=== PATIENT | female | born 1970 | race Caucasian/White ===

== ENCOUNTER → 2019-07-07 08:23 | Outpatient (BNVA) | payer BC, SELFPAY | PROVIDERS: Family Provider Nurse Practitioner; PCP Nurse Practitioner; Visit Provider Nurse Practitioner | DX: E78.5 Hyperlipidemia, unspecified (principal); I10 Essential (primary) hypertension | CPT/HCPCS: 80053; 80061; 85025 ==

== ENCOUNTER 2019-07-29 10:33 | Outpatient (CLI) | payer BC, SELFPAY ==
--- NOTE | 2019-07-29 11:00 | MM_ITS ---
WS: [id number] DIAGNOSTIC BILATERAL DIGITAL MAMMOGRAM WITH CAD RIGHT breast ultrasound, limited HISTORY: hx mass breast COMPARISON: 12/07/2018, 09/16/2018, 08/04/2018 and 07/04/2018 TECHNIQUE: Bilateral craniocaudad, mediolateral oblique, and mediolateral views are submitted. Comput er aided detection utilized. Breast composition: There are scattered areas of fibroglandular density. Partially obscured nodule in the upper outer quadrant of the RIGHT breast measures 10 mm. No change since 07/13/2018. There is a s urgical clip lateral and superior to the nodule. There are no suspicious calcifications. LEFT breast is negative. RIGHT breast ultrasound: Ultrasound is directed to the upper outer quadrant of the RIGHT breast and more specifically at 10:00 . At 10:00 there is an ovoid cyst with through transmission posteriorly measuring 6 x 4 x 7 mm. Previ ously described hypoechoic irregular tract seen on 08/13/2018 is no longer apparent. 1. No change in size of the partially obscured 10 mm nodule posterior RIGHT breast at 10:00. 2. Simple cyst at 10:00 with a maximum diameter 7 mm. 3. There are no suspicious findings by ultrasound in the RIGHT breast. MM/[place] [id number] Impression: BI-RADS: 2-Benign FOLLOW UP: 1 Year Follow-up
--- NOTE | 2019-07-29 11:20 | US_ITS ---
WS: [id number] DIAGNOSTIC BILATERAL DIGITAL MAMMOGRAM WITH CAD RIGHT breast ultrasound, limited HISTORY: hx mass breast COMPARISON: 12/07/2018, 09/16/2018, 08/04/2018 and 07/04/2018 TECHNIQUE: Bilateral craniocaudad, mediolateral oblique, and mediolateral views are submitted. Comput er aided detection utilized. Breast composition: There are scattered areas of fibroglandular density. Partially obscured nodule in the upper outer quadrant of the RIGHT breast measures 10 mm. No change since 07/13/2018. There is a s urgical clip lateral and superior to the nodule. There are no suspicious calcifications. LEFT breast is negative. RIGHT breast ultrasound: Ultrasound is directed to the upper outer quadrant of the RIGHT breast and more specifically at 10:00 . At 10:00 there is an ovoid cyst with through transmission posteriorly measuring 6 x 4 x 7 mm. Previ ously described hypoechoic irregular tract seen on 08/13/2018 is no longer apparent. 1. No change in size of the partially obscured 10 mm nodule posterior RIGHT breast at 10:00. 2. Simple cyst at 10:00 with a maximum diameter 7 mm. 3. There are no suspicious findings by ultrasound in the RIGHT breast. US/US breast RT limited* [id number] Impression: BI-RADS: 2-Benign FOLLOW UP: 1 Year Follow-up
== END 2019-07-29 10:34 | disposition home or self-care (01) ==
PROVIDERS: PCP Nurse Practitioner; Visit Provider Nurse Practitioner
DX: Z86.03 Personal history of neoplasm of uncertain behavior (principal)
CPT/HCPCS: 76642; 77066

== ENCOUNTER → 2019-08-09 09:12 | Outpatient (BNVA) | payer BC, SELFPAY | PROVIDERS: PCP Nurse Practitioner; Visit Provider Internal Medicine | DX: M06.9 Rheumatoid arthritis, unspecified (principal); Z79.899 Other long term (current) drug therapy | CPT/HCPCS: 99213 ==

== ENCOUNTER → 2019-11-17 13:51 | Outpatient (BNVA) | payer BC, SELFPAY | PROVIDERS: PCP Nurse Practitioner; Visit Provider Internal Medicine | DX: M06.9 Rheumatoid arthritis, unspecified (principal) | CPT/HCPCS: 36415; 80053; 85025; 85651; 86140; 99213 ==

== ENCOUNTER → 2020-03-14 14:56 | Outpatient (BNVA) | payer BC, SELFPAY | PROVIDERS: PCP Nurse Practitioner; Visit Provider Internal Medicine | DX: M06.9 Rheumatoid arthritis, unspecified (principal); Z79.899 Other long term (current) drug therapy; Z11.1 Encounter for screening for respiratory tuberculosis; Z11.59 Encounter for screening for other viral diseases | CPT/HCPCS: 36415; 80053; 85025; 85651; 86140; 86480; 86704; 86803; 87340; 99213; 99214 ==

== ENCOUNTER 2020-07-30 09:39 | Outpatient (CLI) | payer BC, SELFPAY ==
--- NOTE | 2020-07-30 10:00 | MM_ITS ---
WS: [id number] BILATERAL DIGITAL SCREENING MAMMOGRAPHY WITH CAD CLINICAL INFORMATION: Z12.39 - Encounter for other screening for malignant neoplasm of breast HISTORY: Screening mammogram. No current complaints. COMPARISON: July 29, 2019 TECHNIQUE: Bilateral CC and MLO views. FINDINGS: Scattered fibroglandular densities bilaterally. Stable partially obscured 10 mm nodule posterior righ t breast. This was previously evaluated. Biopsy clip upper outer right breast. No suspicious focal ma ss, asymmetry, calcifications, or architectural distortion. No evidence of malignancy. MM/[place] [id number] IMPRESSION: BI-RADS: 2-Benign FOLLOW UP: 1 Year Follow-up Recommend return to annual screening mammography.
== END 2020-07-30 09:40 | disposition home or self-care (01) ==
LOC: RADSHAW 09:41
PROVIDERS: PCP Nurse Practitioner; Visit Provider Nurse Practitioner
DX: Z12.31 Encounter for screening mammogram for malignant neoplasm of breast (principal)
CPT/HCPCS: 77067

== ENCOUNTER → 2020-08-22 09:37 | Outpatient (BNVA) | payer BC, SELFPAY | PROVIDERS: PCP Nurse Practitioner; Visit Provider Internal Medicine Rheumatology | DX: Z79.899 Other long term (current) drug therapy (principal); M06.9 Rheumatoid arthritis, unspecified; E55.9 Vitamin D deficiency, unspecified; I10 Essential (primary) hypertension | CPT/HCPCS: 36415; 80053; 80061; 82306; 84443; 85025; 85651; 86140 ==

== ENCOUNTER → 2020-08-28 09:33 | Outpatient (BNVA) | payer BC, SELFPAY | PROVIDERS: PCP Nurse Practitioner; Visit Provider Internal Medicine | DX: M06.9 Rheumatoid arthritis, unspecified (principal); Z79.899 Other long term (current) drug therapy | CPT/HCPCS: 99213; 99214 ==

== ENCOUNTER → 2021-01-02 08:48 | Outpatient (BNVA) | payer BC, SELFPAY | PROVIDERS: PCP Nurse Practitioner; Visit Provider Internal Medicine | DX: Z79.899 Other long term (current) drug therapy (principal); M06.9 Rheumatoid arthritis, unspecified | CPT/HCPCS: 36415; 80053; 85025; 85651; 86140 ==

== ENCOUNTER → 2021-01-10 13:11 | Outpatient (BNVA) | payer BC, SELFPAY | PROVIDERS: PCP Nurse Practitioner; Visit Provider Internal Medicine | DX: M06.9 Rheumatoid arthritis, unspecified (principal); Z79.899 Other long term (current) drug therapy; L98.9 Disorder of the skin and subcutaneous tissue, unspecified | CPT/HCPCS: 88305; 99214 ==

== ENCOUNTER 2021-06-14 09:30 | Outpatient (CLI) | payer BC, SELFPAY ==
[2021-06-14 10:41] LABS: Basophils # 0.1 10^3/uL (0.0-0.1); Basophils % 0.7 %; Eosinophils # 0.1 10^3/uL (0.0-0.8); Eosinophils % 1.7 %; Hematocrit 42.2 % (37.0-47.0); Hemoglobin 13.2 g/dL (11.5-15.3); Lymphocytes # 2.2 10^3/uL (0.8-4.8); Lymphocytes % 30.1 %; Mean Corpuscular HGB Conc 31.3 g/dL (30.0-36.0); Mean Corpuscular Hemoglobin 27.7 pg (28.0-34.0); Mean Corpuscular Volume 88.5 fl (81-99); Mean Platelet Volume 10.3 fL (7.4-10.4); Monocytes # 0.5 10^3/uL (0.2-0.9); Monocytes % 6.4 %; Neutrophils # 4.53 10^3/uL (1.8-7.7); Neutrophils % 60.8 %; Nucleated Red Blood Cells % 0 %; Platelet Count 348 10^3/cmm (130-400); Red Blood Count 4.77 10^6/uL (4.1-5.3); Red Cell Distribution Width 13.9 % (12.1-15.1); White Blood Count 7.5 10^3/uL (4.0-10.0)
[2021-06-14 11:07] LABS: Alanine Aminotransferase 18 U/L (0-33); Albumin Level 4.2 g/dL (3.5-5.2); Alkaline Phosphatase 73 IU/L (35-105); Anion Gap 14.2 (5-19); Aspartate Amino Transferase 23 U/L (0-32); Blood Urea Nitrogen 16 mg/dL (6-20); Calcium 8.7 mg/dL (8.5-10.5); Carbon Dioxide 26 mmol/L (22-29); Chloride 102 mmol/L (98-107); Globulin 3.8 g/dL (1.3-4.6); Glomerular Filtration Rate 87.5 mL/min (90-130); Glucose 90 mg/dL (65-115); Osmolality Calculated 287 mOsm/kg (285-295); Potassium 4.2 mmol/L (3.5-5.1); Sodium 138 mmol/L (136-145); Total Bilirubin 0.2 mg/dL (0.15-1.2)
[2021-06-14 11:24] LABS: Erythrocyte Sedimentation Rate 20 mm/hr (0-15)
== END 2021-06-14 09:31 | disposition home or self-care (01) ==
PROVIDERS: PCP Nurse Practitioner; Visit Provider Internal Medicine
DX: Z79.899 Other long term (current) drug therapy (principal); M06.9 Rheumatoid arthritis, unspecified
CPT/HCPCS: 36415; 80053; 85025; 85651; 86140

== ENCOUNTER 2021-08-09 09:05 | Outpatient (CLI) | payer BC, SELFPAY ==
--- NOTE | 2021-08-09 09:09 | MM_ITS ---
WS: [id number] BILATERAL SCREENING DIGITAL BREAST TOMOSYNTHESIS MAMMOGRAM WITH CAD HISTORY: SCREEN COMPARISON: 07/30/2020, 07/29/2019 Bilateral CC and MLO views with tomosynthesis and synthetic mammography submitted. Computer aided det ection analyzed. Breast composition: There are scattered areas of fibroglandular density. No suspicious masses, microc alcifications or architectural distortion. Long-term stability 11 mm nodule upper outer quadrant RIGH T breast. No change in appearance of the breast. No calcifications. MM/[place] [id number] IMPRESSION: BI-RADS: 2-Benign FOLLOW UP: 1 Year Follow-up
== END 2021-08-09 09:06 | disposition home or self-care (01) ==
LOC: RAD 09:06
PROVIDERS: PCP Nurse Practitioner; Visit Provider Nurse Practitioner
DX: Z12.31 Encounter for screening mammogram for malignant neoplasm of breast (principal)
CPT/HCPCS: 77063; 77067

== ENCOUNTER → 2021-10-08 10:14 | Outpatient (BNVA) | payer BC, SELFPAY | PROVIDERS: PCP Nurse Practitioner; Visit Provider Emergency Medicine | DX: J32.9 Chronic sinusitis, unspecified (principal); J06.9 Acute upper respiratory infection, unspecified | CPT/HCPCS: 87880 ==

== ENCOUNTER 2021-11-05 10:57 | Outpatient (CLI) | payer BC, SELFPAY ==
[2021-11-05 11:49] LABS: Basophils # 0.1 10^3/uL (0.0-0.1); Basophils % 0.5 %; Eosinophils # 0.1 10^3/uL (0.0-0.8); Eosinophils % 1.3 %; Hematocrit 41.2 % (37.0-47.0); Hemoglobin 12.6 g/dL (11.5-15.3); Lymphocytes # 2.4 10^3/uL (0.8-4.8); Lymphocytes % 22.9 %; Mean Corpuscular HGB Conc 30.6 g/dL (30.0-36.0); Mean Corpuscular Hemoglobin 27.4 pg (28.0-34.0); Mean Corpuscular Volume 89.6 fl (81-99); Mean Platelet Volume 10.1 fL (7.4-10.4); Monocytes # 0.7 10^3/uL (0.2-0.9); Neutrophils # 7.08 10^3/uL (1.8-7.7); Neutrophils % 67.9 %; Nucleated Red Blood Cells % 0 %; Platelet Count 293 10^3/cmm (130-400); Red Cell Distribution Width 14.9 % (12.1-15.1); White Blood Count 10.4 10^3/uL (4.0-10.0)
[2021-11-05 12:05] LABS: Alanine Aminotransferase 19 U/L (0-33); Alkaline Phosphatase 66 U/L (35-105); Anion Gap 16.4 (5-19); Aspartate Amino Transferase 17 U/L (0-32); Blood Urea Nitrogen 12 mg/dL (6-20); C Reactive Protein 4.6 mg/L (0.0-4.9); Calcium 9.1 mg/dL (8.5-10.5); Carbon Dioxide 21 mmol/L (22-29); Chloride 102 mmol/L (98-107); Globulin 3.5 g/dL (1.3-4.6); Glomerular Filtration Rate 87.5 mL/min (90-130); Glucose 78 mg/dL (65-115); Osmolality Calculated 279 mOsm/kg (285-295); Potassium 4.4 mmol/L (3.5-5.1); Sodium 135 mmol/L (136-145); Total Bilirubin 0.3 mg/dL (0.15-1.2); Total Protein 7.5 g/dL (6.6-8.7)
[2021-11-05 12:10] LABS: Erythrocyte Sedimentation Rate 14 mm/hr (0-15)
== END 2021-11-05 10:58 | disposition home or self-care (01) ==
LOC: LAB 11:02
PROVIDERS: PCP Nurse Practitioner; Visit Provider Internal Medicine
DX: M06.9 Rheumatoid arthritis, unspecified (principal); Z79.899 Other long term (current) drug therapy
CPT/HCPCS: 36415; 80053; 85025; 85651; 86140

== ENCOUNTER 2021-11-14 07:28 | Outpatient (CLI) | payer BC, SELFPAY ==
--- NOTE | 2021-11-14 08:00 | US_ITS ---
WS: [email or web address] RIGHT UPPER QUADRANT ULTRASOUND HISTORY: R10.11 - Right upper quadrant pain COMPARISON: Renal ultrasound 08/06/2011 Liver: 14.1 cm in length. Normal size liver. 2 cysts are noted within the RIGHT lobe of the liver. Th e largest contains a septation measuring 1.8 x 2.0 x 1.6 cm. There is a smaller cyst just anterior to the hank hepatis measuring 2.3 x 1.8 x 1.4 cm. Previously described hemangioma in the posterior adeline er is not identified. Portal Vein: Normal hepatopetal flow with monophasic waveform. Gallbladder: Normally distended gallbladder with no stones or wall thickening. CBD: 0.4 cm Pancreas: Not visualized. Right kidney: 10.2 cm in length. Normal size and echogenicity. No hydronephrosis or mass. Aorta and IVC: Unremarkable abdominal aorta and IVC. No ascites. US/US gall bladder [id number] IMPRESSION: 1. Normal gallbladder. 2. Hepatic cysts. Previously described hemangioma in the RIGHT lobe of the adeline er is not identified today. Probably due to difficulty visualizing the posterio r liver. 3. Nonvisualization of the pancreas.
== END 2021-11-14 07:29 | disposition home or self-care (01) ==
PROVIDERS: PCP Nurse Practitioner; Visit Provider Nurse Practitioner Family
DX: R10.11 Right upper quadrant pain (principal); K76.89 Other specified diseases of liver
CPT/HCPCS: 76705

== ENCOUNTER 2021-11-29 11:30 | Outpatient (CLI) | payer BC, SELFPAY ==
[2021-11-29] MEDS: iohexol 350 mg/mL 100 mL Btl IV (11:38)
[2021-11-29] MEDS: iohexol 350 mg/mL 100 mL Btl PO (11:39)
--- NOTE | 2021-11-29 12:00 | CT_ITS ---
WS: [email or web address] CT ABDOMEN WITH CONTRAST HISTORY: R10.11 - Right upper quadrant pain Contiguous single phase 5 mm axial imaging performed to the abdomen. Oral contrast has been provided. Coronal and sagittal reformats are submitted. All CT scans at [facility] use at least one of these dose optimization techniques: automated exposure control; mA and/or kV adjustment per patient size (includes targeted exams where dose is matched to clinical indication); or iterative reconstruct ion. CONTRAST: Omnipaque 350; 95 mL IV. DLP: 740.00 mGy.cm COMPARISON: Gallbladder ultrasound 11/14/2021 Lower thorax: Unremarkable. Liver: Normal size liver. Several hepatic cysts are identified with the largest in the LEFT lobe em uring 1.7 cm. Peripherally puddling mass in the posterior RIGHT lobe measures 2.1 cm in diameter cons istent with the previously described hemangioma. Normal portal vein. Gallbladder: Normal. Pancreas: Pancreas is normal size. There is a cystic mass at the pancreatic head measuring 1.6 x 0.9 cm. This is just medial to the common bile duct. The remaining pancreas is negative. No pancreatic du ct dilatation. Spleen: Normal. Adrenals: Normal. Right kidney: Normal. Left kidney: Normal. Aorta: Very mild atherosclerosis aorta. GI tract: Normally distended stomach. No small bowel obstruction. The visualized colon is negative. No adenopathy or free fluid. Abdominal wall: No hernia. Visualized osseous structures: Focal kyphosis centered at the thoracolumbar junction. There is mild a nterior wedging of T11 and T12. CT/CT abdomen w con* [id number] IMPRESSION: 1. Hepatic cysts and hepatic hemangioma. 2. Cystic mass at the pancreatic head measures 1.6 x 0.9 cm. Cyst is adjacent to the common bile duct. Differential includes serous cystic neoplasm and intra ductal papillary mucinous neoplasm. As this mass has not been previously descri bed follow-up pancreatic mass CT protocol recommended in 3 months with IV contr ast.
== END 2021-11-29 11:31 | disposition home or self-care (01) ==
PROVIDERS: PCP Nurse Practitioner; Visit Provider Nurse Practitioner Family
DX: R10.11 Right upper quadrant pain (principal); K76.89 Other specified diseases of liver; D18.09 Hemangioma of other sites; K86.2 Cyst of pancreas
CPT/HCPCS: 74160

== ENCOUNTER 2021-12-04 16:28 | Outpatient (CLI) | payer BC, SELFPAY ==
[2021-12-04] MEDS: iohexol 350 mg/mL 100 mL Btl IV (17:13)
--- NOTE | 2021-12-04 17:30 | CT_ITS ---
WS: [email or web address] CT ABDOMEN AND PELVIS WITH CONTRAST HISTORY: Follow-up pancreatic cyst. TECHNIQUE: Imaging performed of the abdomen and pelvis with IV contrast. Dual phase imaging of the a bdomen. Coronal and sagittal reformats are submitted. All CT scans at [facility] use at least one of these dose optimization techniques: automated exposure control; mA and/or kV adjustment per p atient size (includes targeted exams where dose is matched to clinical indication); or iterative twan nstruction. IV CONTRAST: Omnipaque 350; 95 mL IV. Oral contrast: No DLP: 2278.53 mGy.cm COMPARISON: 11/29/2021 Lower thorax: Lung bases are clear. Heart is normal size. No hiatal hernia. Liver/biliary system: Size liver. There are several small hepatic cysts with the largest measuring 1. 8 x 1.3 cm. This cyst is just to the LEFT of the LEFT portal vein. There are smaller scattered cysts. There is also a hemangioma measuring 2.1 x 1.9 cm in the posterior RIGHT lobe of the liver. No bile duct dilatation. Gallbladder: Gallbladder is contracted. No stones. Pancreas: Pancreas is normal size. No pancreatic duct dilatation. There is an ovoid cystic mass at th e pancreatic head. This pancreatic mass is between the distal common bile duct and the pancreatic hea d and closely associated with the gastric artery. Mass measures 1.6 x 1.1 cm. There may be a connecti on to the distal common bile duct. The pancreatic duct is not dilated. Common bile duct is not dilate d. Spleen: Normal size spleen. No mass or infarct. Adrenal glands: Normal. Right kidney: Normal. Left kidney: Normal. Aorta: Normal. Lymphadenopathy: None. Free fluid: None. GI tract: Stomach is distended with fluid and food products. No small bowel obstruction. Mild constip ation. Normal appendix. There are a few scattered diverticula in the distal colon. Abdominal wall: Fat containing umbilical hernia. Pelvis: Uterus is enlarged and heterogeneous and lobular. Fibroid uterus. The largest fibroid is to t he RIGHT measuring 4.3 x 3.8 cm. Additional lobulated contour of the uterus from additional fibroids. The endometrium is fluid-filled measuring up to 2.1 cm. There is a focal area of enhancement in the endometrial canal measuring 0.8 cm. LEFT ovary contains and crenulated cyst measuring 2.7 x 2.5 cm. C onsistent with a collapsing cyst. No free fluid. Bones: Chronic anterior wedging of T12. CT/CT abdomen pelvis w con* [id number] IMPRESSION: 1. Cystic mass inseparable from the pancreatic head and distal common bile albert t measures 1.6 x 1.1 cm. There may be a connection between the distal common bi le duct and this cystic mass. Differential includes choledochocele type II, cys tic pancreatic head mass (serous or mucinous) or IPMN. Continued close follow-u p recommended. Three-month CT follow-up with contrast versus MRI pancreas with contrast. 2. Hepatic cysts and hepatic hemangioma. 3. Enlarged fibroid uterus. 4. Fluid-filled endometrium with an enhancing nodule in the fluid. Recommend p elvic ultrasound. Transvaginal and transabdominal may be necessary. The ovaries are high within the pelvis. The endometrium needs to be evaluated by transvagi nal imaging.
== END 2021-12-04 16:29 | disposition home or self-care (01) ==
LOC: RAD 16:30
PROVIDERS: PCP Nurse Practitioner; Visit Provider Nurse Practitioner
DX: K86.2 Cyst of pancreas (principal); K83.5 Biliary cyst; K76.89 Other specified diseases of liver; D18.09 Hemangioma of other sites; D25.9 Leiomyoma of uterus, unspecified; Z80.42 Family history of malignant neoplasm of prostate
CPT/HCPCS: 74177

== ENCOUNTER → 2022-05-13 08:56 | Outpatient (BNVA) | payer BC, SELFPAY | PROVIDERS: PCP Nurse Practitioner; Visit Provider Nurse Practitioner | DX: I10 Essential (primary) hypertension (principal) | CPT/HCPCS: 80053; 80061; 84443 ==

== ENCOUNTER 2022-06-30 08:15 | Outpatient (CLI) | payer BC, SELFPAY ==
[2022-06-30 08:40] LABS: Basophils # 0.1 10^3/uL (0.0-0.1); Basophils % 0.8 %; Eosinophils # 0.1 10^3/uL (0.0-0.8); Eosinophils % 1.7 %; Hematocrit 42.1 % (37.0-47.0); Hemoglobin 12.9 g/dL (11.5-15.3); Lymphocytes # 2.1 10^3/uL (0.8-4.8); Lymphocytes % 28.2 %; Mean Corpuscular HGB Conc 30.6 g/dL (30.0-36.0); Mean Corpuscular Hemoglobin 26.7 pg (28.0-34.0); Mean Platelet Volume 10.1 fL (7.4-10.4); Monocytes # 0.5 10^3/uL (0.2-0.9); Monocytes % 7.2 %; Neutrophils # 4.65 10^3/uL (1.8-7.7); Nucleated Red Blood Cells % 0 %; Platelet Count 305 10^3/cmm (130-400); Red Blood Count 4.84 10^6/uL (4.1-5.3); Red Cell Distribution Width 14.3 % (12.1-15.1); White Blood Count 7.5 10^3/uL (4.0-10.0)
[2022-06-30 08:55] LABS: Alanine Aminotransferase 28 U/L (0-33); Albumin Level 4.4 g/dL (3.5-5.2); Alkaline Phosphatase 72 U/L (35-105); Anion Gap 15.5 (5-19); Aspartate Amino Transferase 23 U/L (0-32); Blood Urea Nitrogen 15 mg/dL (6-20); Calcium 9.4 mg/dL (8.5-10.5); Carbon Dioxide 24 mmol/L (22-29); Chloride 102 mmol/L (98-107); Globulin 3.5 g/dL (1.3-4.6); Glomerular Filtration Rate 74.7 mL/min (90-130); Glucose 95 mg/dL (65-115); Osmolality Calculated 285 mOsm/kg (285-295); Potassium 4.5 mmol/L (3.5-5.1); Sodium 137 mmol/L (136-145); Total Bilirubin 0.2 mg/dL (0.15-1.2); Total Protein 7.9 g/dL (6.6-8.7)
[2022-06-30 09:00] LABS: Erythrocyte Sedimentation Rate 19 mm/hr (0-15)
== END 2022-06-30 08:16 | disposition home or self-care (01) ==
PROVIDERS: PCP Nurse Practitioner; Visit Provider Internal Medicine
DX: M06.9 Rheumatoid arthritis, unspecified (principal); Z79.899 Other long term (current) drug therapy
CPT/HCPCS: 36415; 80053; 85025; 85651; 86140

== ENCOUNTER 2022-08-12 09:35 | Outpatient (CLI) | payer BC, SELFPAY ==
--- NOTE | 2022-08-12 09:42 | MM_ITS ---
WS: [email or web address] BILATERAL 3D TOMOSYNTHESIS DIGITAL SCREENING MAMMOGRAPHY WITH CAD CLINICAL INFORMATION: Z12.39 - Encounter for other screening for malignant neop... HISTORY: Screening mammogram. No current complaints. COMPARISON: 2021 TECHNIQUE: Bilateral CC and MLO views. FINDINGS: Scattered fibroglandular densities bilaterally. No suspicious focal mass, asymmetry, calcifications, or architectural distortion. No evidence of malignancy. Stable partially obscured ovoid nodule RIGHT breast measuring 11 mm. Biopsy marker upper outer RIGHT breast. MM/[place] [id number] IMPRESSION: BI-RADS: 2-Benign FOLLOW UP: 1 Year Follow-up Recommend return to annual screening mammography.
== END 2022-08-12 09:36 | disposition home or self-care (01) ==
PROVIDERS: PCP Nurse Practitioner; Visit Provider Nurse Practitioner
DX: Z12.31 Encounter for screening mammogram for malignant neoplasm of breast (principal)
CPT/HCPCS: 77063; 77067

== ENCOUNTER 2023-01-13 09:44 | Outpatient (CLI) | payer BC, SELFPAY ==
[2023-01-13 10:26] LABS: Basophils # 0.1 10^3/uL (0.0-0.1); Basophils % 0.8 %; Eosinophils # 0.1 10^3/uL (0.0-0.8); Eosinophils % 2.2 %; Hematocrit 42.4 % (36-47); Lymphocytes # 1.8 10^3/uL (0.8-4.8); Lymphocytes % 30.8 %; Mean Corpuscular HGB Conc 30.9 g/dL (30-55); Mean Corpuscular Hemoglobin 27.3 pg (27-33); Mean Corpuscular Volume 88.3 fl (85-98); Mean Platelet Volume 9.6 fL (7.4-10.4); Monocytes # 0.5 10^3/uL (0.2-0.9); Neutrophils # 3.46 10^3/uL (1.8-7.7); Nucleated Red Blood Cells % 0 %; Platelet Count 305 10^3/cmm (157-399); White Blood Count 5.97 10^3/uL (3.29-11.43)
[2023-01-13 10:45] LABS: Alanine Aminotransferase 29 U/L (0-33); Albumin Level 4.4 g/dL (3.5-5.2); Alkaline Phosphatase 97 U/L (35-105); Anion Gap 15.9 (5-19); Aspartate Amino Transferase 22 U/L (0-32); Blood Urea Nitrogen 17 mg/dL (6-20); C Reactive Protein 4.2 mg/L (0.0-4.9); Calcium 9.9 mg/dL (8.5-10.5); Carbon Dioxide 26 mmol/L (22-29); Chloride 104 mmol/L (98-107); Chol HDL Ratio 4.92 mg/dL (0.0-4.40); Cholesterol 246 mg/dL (0-200); Globulin 3.4 g/dL (1.3-4.6); Glomerular Filtration Rate 74.7 mL/min (90-130); Glucose 100 mg/dL (65-115); HDL Cholesterol 50 mg/dL (60-100); LDL Cholesterol Calculated 156 mg/dL (50-129); Osmolality Calculated 294 mOsm/kg (285-295); Potassium 4.9 mmol/L (3.5-5.1); Sodium 141 mmol/L (136-145); Total Bilirubin 0.2 mg/dL (0.15-1.2); Total Protein 7.8 g/dL (6.6-8.7); Triglycerides 202 mg/dL (0-150); VLDL Cholestrol Calculation 40 mg/dL (0-30)
[2023-01-13 10:59] LABS: Erythrocyte Sedimentation Rate 23 mm/hr (0-15)
== END 2023-01-13 09:45 | disposition home or self-care (01) ==
PROVIDERS: Absent Provider Nurse Practitioner; PCP Nurse Practitioner; Visit Provider Internal Medicine
DX: E66.9 Obesity, unspecified (principal); E78.5 Hyperlipidemia, unspecified; F41.9 Anxiety disorder, unspecified; I10 Essential (primary) hypertension
CPT/HCPCS: 36415; 80053; 80061; 85025; 85651; 86140

== ENCOUNTER → 2023-04-12 11:19 | Outpatient (BNVA) | payer BC, SELFPAY | PROVIDERS: PCP Nurse Practitioner; Visit Provider Emergency Medicine | DX: R05.9 Cough, unspecified (principal) | CPT/HCPCS: 87400; 87426 ==

== ENCOUNTER → 2023-07-08 10:38 | Outpatient (BNVA) | payer BC, SELFPAY | PROVIDERS: PCP Nurse Practitioner; Visit Provider Nurse Practitioner | DX: I10 Essential (primary) hypertension (principal); E78.5 Hyperlipidemia, unspecified | CPT/HCPCS: 80053; 80061; 85025 ==

== ENCOUNTER 2023-08-18 09:17 | Outpatient (CLI) | payer BC, SELFPAY ==
--- NOTE | 2023-08-18 09:30 | MM_ITS ---
WS: [email or web address] BILATERAL 3D TOMOSYNTHESIS DIGITAL SCREENING MAMMOGRAPHY WITH CAD CLINICAL INFORMATION: Z12.31 - Encounter for screening mammogram for malignant ... HISTORY: Screening mammogram. No current complaints. COMPARISON: 08/12/2022 TECHNIQUE: Bilateral CC and MLO views. FINDINGS: Scattered fibroglandular densities bilaterally. Stable partially obscured ovoid nodule RIGHT breast m easuring 11 mm. Biopsy marker upper outer RIGHT breast. No suspicious focal mass, asymmetry, calcifications, or architectural distortion. No evidence of deepa gnancy. MM/[place] [id number] IMPRESSION: BI-RADS: 2-Benign FOLLOW UP: 1 Year Follow-up Recommend return to annual screening mammography.
== END 2023-08-18 09:18 | disposition home or self-care (01) ==
LOC: RAD 09:17
PROVIDERS: PCP Nurse Practitioner; Visit Provider Nurse Practitioner
DX: Z12.31 Encounter for screening mammogram for malignant neoplasm of breast (principal); R92.323 Mammographic fibroglandular density, bilateral breasts; N63.10 Unspecified lump in the right breast, unspecified quadrant
CPT/HCPCS: 77063; 77067

== ENCOUNTER 2023-10-21 11:06 | Outpatient (CLI) | payer BC, SELFPAY ==
[2023-10-21 12:02] LABS: Basophils # 0.1 10^3/uL (0.0-0.1); Basophils % 0.8 %; Eosinophils # 0.2 10^3/uL (0.0-0.8); Eosinophils % 2.4 %; Hematocrit 41.9 % (36-47); Lymphocytes # 1.7 10^3/uL (0.8-4.8); Lymphocytes % 27.7 %; Mean Corpuscular HGB Conc 31.3 g/dL (30-55); Mean Corpuscular Hemoglobin 27.4 pg (27-33); Mean Corpuscular Volume 87.7 fl (85-98); Mean Platelet Volume 9.8 fL (7.4-10.4); Monocytes # 0.4 10^3/uL (0.2-0.9); Monocytes % 6.5 %; Neutrophils # 3.86 10^3/uL (1.8-7.7); Neutrophils % 62.3 %; Nucleated Red Blood Cells % 0 %; Platelet Count 305 10^3/cmm (157-399); Red Blood Count 4.78 10^6/uL (3.85-5.65); Red Cell Distribution Width 14.1 % (12.1-15.1)
[2023-10-21 12:03] LABS: Erythrocyte Sedimentation Rate 6 mm/hr (0-15)
[2023-10-21 12:21] LABS: Alanine Aminotransferase 21 U/L (0-33); Albumin Level 4.4 g/dL (3.5-5.2); Alkaline Phosphatase 91 U/L (35-105); Aspartate Amino Transferase 18 U/L (0-32); Globulin 3.3 g/dL (1.3-4.6); Glomerular Filtration Rate 57.6 mL/min (90-130); Total Bilirubin 0.2 mg/dL (0.15-1.2); Total Protein 7.7 g/dL (6.6-8.7)
== END 2023-10-21 11:07 | disposition home or self-care (01) ==
LOC: LAB 11:06
PROVIDERS: PCP Nurse Practitioner; Visit Provider Internal Medicine Rheumatology
DX: M06.9 Rheumatoid arthritis, unspecified (principal); Z79.899 Other long term (current) drug therapy
CPT/HCPCS: 36415; 80076; 82565; 85025; 85651; 86140

== ENCOUNTER 2023-11-11 13:19 | Outpatient (CLI) | payer BC, SELFPAY ==
[2023-11-11 14:05] LABS: Blood Urea Nitrogen 21 mg/dL (6-20)
== END 2023-11-11 13:20 | disposition home or self-care (01) ==
LOC: LAB 13:20
PROVIDERS: PCP Nurse Practitioner; Visit Provider Internal Medicine Rheumatology
DX: Z79.899 Other long term (current) drug therapy (principal); M06.9 Rheumatoid arthritis, unspecified
CPT/HCPCS: 36415; 82565; 84520

== ENCOUNTER → 2023-12-23 10:15 | Outpatient (BNVA) | payer BC, SELFPAY | PROVIDERS: PCP Nurse Practitioner; Visit Provider Nurse Practitioner | DX: I10 Essential (primary) hypertension (principal); E78.5 Hyperlipidemia, unspecified | CPT/HCPCS: 80053; 80061 ==

== ENCOUNTER → 2024-03-02 14:50 | Outpatient (BNVA) | payer BC, SELFPAY | PROVIDERS: PCP Nurse Practitioner; Visit Provider Internal Medicine Rheumatology | DX: M05.79 Rheumatoid arthritis with rheumatoid factor of multiple sites without organ or systems involvement (principal); Z79.899 Other long term (current) drug therapy | CPT/HCPCS: 36415; 80076; 82565; 85025; 85651; 86140 ==

== ENCOUNTER → 2024-06-20 09:35 | Outpatient (BNVA) | payer BC, SELFPAY | PROVIDERS: PCP Nurse Practitioner; Visit Provider Nurse Practitioner | DX: I10 Essential (primary) hypertension (principal); E78.5 Hyperlipidemia, unspecified | CPT/HCPCS: 80053; 80061; 84443 ==

== ENCOUNTER 2024-08-18 08:57 | Outpatient (CLI) | payer BC, SELFPAY ==
--- NOTE | 2024-08-18 09:20 | MM_ITS ---
WS: [email or web address] BILATERAL SCREENING DIGITAL TOMOSYNTHESIS MAMMOGRAM WITH CAD HISTORY: Z12.31 - Encounter for screening mammogram for malignant ... COMPARISON: 08/18/2023 and 08/12/2022, 07/30/2020 Bilateral CC and MLO views with tomosynthesis and synthetic mammography submitted. Computer aided detection analyzed. Breast composition: There are scattered areas of fibroglandular density. No suspicious masses, microcalcifications or architectural distortion. Bilateral asymmetries towards the upper outer quadrants are stable. MM/MM scr tomosynthesis [id number] IMPRESSION: BI-RADS: 2 - Benign. FOLLOW UP: 1 Year Follow-up
== END 2024-08-18 08:58 | disposition home or self-care (01) ==
PROVIDERS: PCP Nurse Practitioner; Visit Provider Nurse Practitioner
DX: Z12.31 Encounter for screening mammogram for malignant neoplasm of breast (principal); R92.323 Mammographic fibroglandular density, bilateral breasts; N64.89 Other specified disorders of breast
CPT/HCPCS: 77063; 77067

== ENCOUNTER 2024-12-20 09:42 | Outpatient (CLI) | payer BC, SELFPAY ==
[2024-12-20 10:35] LABS: Hematocrit 41.2 % (36-47); Hemoglobin 13.00 g/dL (11.27-16.99); Mean Corpuscular HGB Conc 31.6 g/dL (30-55); Mean Corpuscular Hemoglobin 26.9 pg (27-33); Mean Corpuscular Volume 85.1 fl (85-98); Nucleated Red Blood Cells % 0 %; Platelet Count 302 10^3/cmm (157-399); Red Blood Count 4.84 10^6/uL (3.85-5.65); White Blood Count 5.44 10^3/uL (3.29-11.43)
[2024-12-20 10:53] LABS: Alanine Aminotransferase 19 U/L (0-33); Albumin Level 4.5 g/dL (3.5-5.2); Alkaline Phosphatase 90 U/L (35-105); Anion Gap 17.5 (5-19); Aspartate Amino Transferase 19 U/L (0-32); Blood Urea Nitrogen 20 mg/dL (6-20); Calcium 9.4 mg/dL (8.5-10.5); Carbon Dioxide 24 mmol/L (22-29); Chloride 101 mmol/L (98-107); Cholesterol 261 mg/dL (0-200); Globulin 3.0 g/dL (1.3-4.6); Glucose 89 mg/dL (65-115); HDL Cholesterol 55 mg/dL (60-100); Osmolality Calculated 288 mOsm/kg (285-295); Potassium 4.5 mmol/L (3.5-5.1); Sodium 138 mmol/L (136-145); Total Protein 7.5 g/dL (6.6-8.7); Triglycerides 146 mg/dL (0-150)
== END 2024-12-20 09:43 | disposition home or self-care (01) ==
PROVIDERS: PCP Nurse Practitioner; Visit Provider Internal Medicine Rheumatology
DX: I10 Essential (primary) hypertension (principal); Z79.899 Other long term (current) drug therapy; M05.79 Rheumatoid arthritis with rheumatoid factor of multiple sites without organ or systems involvement
CPT/HCPCS: 36415; 80048; 80061; 80076; 85025; 85651; 86140; 86480

== ENCOUNTER → 2025-02-09 08:25 | Outpatient (BNVA) | payer BC, SELFPAY | PROVIDERS: PCP Nurse Practitioner; Visit Provider Podiatrist Foot & Ankle Surgery | DX: M79.672 Pain in left foot (principal); M79.89 Other specified soft tissue disorders; M85.672 Other cyst of bone, left ankle and foot | CPT/HCPCS: 73630 ==

== ENCOUNTER 2025-02-21 11:19 | Outpatient (CLI) | payer BC, SELFPAY ==
--- NOTE | 2025-02-21 11:45 | MR_ITS ---
WS: [email or web address] MRI LEFT FOOT WITH AND WITHOUT CONTRAST. COMPARISON: LEFT foot radiograph 02/09/2025 Multiplanar, multisequence imaging is performed with and without contrast. Sagittal and axial T1 fat sat sequences post-MultiHance 17 cc IV. History: Palpable mass first toe. Extra-articular erosion along the medial first metatarsal head measures approximately 4 x 3 mm. There is adjacent overlying soft tissue thickening. These findings correspond to the palpable abnormality. The overlying soft tissue thickening is low signal on the T1 sequences and intermediate to increased on the T2 sequences. There is very slight enhancement within the area of soft tissue thickening and also within the bony erosion. Additional significant erosive changes involving the fourth and fifth metatarsal heads. These erosive changes are both along the articular surface and extra- articular. There are additional very small erosive changes in the second and third metatarsal heads. Increased soft tissue surrounding the fourth and fifth metatarsal heads and the erosive changes with mild enhancement. There is mild enhancement involving the erosive changes at the first, fourth and fifth metatarsal heads and soft tissue enhancement. No well organized collection to suggest an abscess. There is additional fluid between the proximal first and second metatarsals. This may be a small ganglion. Lisfranc ligament is intact. There is advanced degenerative narrowing at the talonavicular joint space which is incompletely included as this is not an ankle MRI. MR/MR foot LT wo/w con [id number] IMPRESSION: 1. Significant erosive changes with associated soft tissue hypertrophy involvi ng the first, fourth and fifth metatarsal heads. Lesser erosive changes without enhancement at the second and third metatarsal heads. Suspect inflammatory art hropathy. Consider gout and rheumatoid arthritis. 2. Additional joint space narrowing with subchondral cystic changes at the molly onavicular articulation. 3. Small fluid collection between the proximal first and second metatarsals. S uspect this is probably a ganglion.
== END 2025-02-21 11:20 | disposition home or self-care (01) ==
LOC: RAD 11:20
PROVIDERS: PCP Nurse Practitioner; Visit Provider Podiatrist Foot & Ankle Surgery
DX: M79.89 Other specified soft tissue disorders (principal); M85.672 Other cyst of bone, left ankle and foot
CPT/HCPCS: 73720